=== PATIENT | male | born 1995 ===

== ENCOUNTER 2018-12-08 00:33 | Day surgery (SDC) | payer BC ==
[~2018-12-08] VITALS: Ht 188 cm; Wt 104.3 kg
[2018-12-08] MEDS ORDERED: NORMOSOL R SOLN(*) 1000 ML BAG 1,000 ML IV PRN (12:35)
[2018-12-08] MEDS ORDERED: ceFAZolin(*) 2GM/D5W 50ML 50 ML IVPB ONE (12:35)
[2018-12-08] MEDS ORDERED: MIDAZOLAM 2 MG/2 ML VIAL IVP PRN (12:35)
[2018-12-08] MEDS ORDERED: FAMOTIDINE 20 MG TAB PO ONE (12:35)
[2018-12-08] MEDS ORDERED: LIDOCAINE/SOD BICARB 8.4% SYR ID ONE (12:35)
[2018-12-08 14:32] VITALS: BP 123/71
[2018-12-08] MEDS ORDERED: DEXAMETHASONE SOD PHOS 10MG/ML ONE (16:31)
[2018-12-08] MEDS ORDERED: ONDANSETRON 4 MG/2 ML VIAL ONE (16:31)
[2018-12-08] MEDS ORDERED: PROPOFOL EMUL(*) 10MG/ML 20 ML 40 ML ONE (16:31)
[2018-12-08] MEDS ORDERED: fentaNYL CITR 100 MCG/2 ML AMP ONE (16:32)
[2018-12-08] MEDS ORDERED: ROPIVACAINE 0.5% 20 ML VIAL ONE (16:49)
[2018-12-08] MEDS ORDERED: BACITRACIN OINT 0.9 GM PKT TP ONE (17:18)
[2018-12-08] MEDS ORDERED: OXYC-373 PO (17:34)
[2018-12-08] MEDS ORDERED: DOCU-416 PO (17:35)
--- NOTE | 2018-12-08 17:38 | Short(Outpt) Discharge Summary ---
Discharge Summary Reason for Hosp/Final Diag: (1) Umbilical hernia Status: Chronic Hospital Course & Plan: UHR without mesh completed without problems. Departure Discharge to: Home, Self Care Discharge Instructions Home Meds Active Scripts Docusate Sodium (COLACE) 100 Mg Capsule, 1 CAP PO BID, #30 CAP 0 Refills TAKE WITH A FULL GLASS OF WATER Prov:DIMITRIS VILA MD 12/08/18 Oxycodone Hcl/Acetaminophen (OXYCODONE-ACETAMINOPHEN 5-325) 1 Each Tablet, 1 TAB PO Q4H PRN for PAIN, #20 TAB 0 Refills Prov:DIMITRIS VILA MD 12/08/18 Follow up Referrals: General Surgery - 12/23/18 @ Surgery, General with DIMITRIS VILA MD You have a follow up appointment scheduled with Dr. Vila on 12/23/18, at 9:45am. Diet: Regular Activity: No Heavy Lifting Special Instructions: You may remove the white surgical dressing and gauze from your belly button on 12/10/18, then you can shower after the dressing is removed. After showering, leave the incision open to air but leave the steristrips in place until they fall off on their own. Do not immerse the incision or your belly button for 2 weeks. Avoid any activity that involves straining or lifting more than 10 pounds for 4 weeks after surgery. Problem Qualifiers (1) Umbilical hernia: Obstruction and gangrene presence: without obstruction or gangrene Qualified Codes: K42.9 - Umbilical hernia without obstruction or gangrene DIMITRIS VILA MD Dec 08, 2018 17:38
--- NOTE | 2018-12-08 17:44 | Post Operative Progress Note ---
Post Operative Progress Note Date: Dec 08, 2018 Time: 17:39 Surgeon: Norma Dictation number: [id number] Anesthesia: LMA by Dr. Murphy Pre-Op Diagnosis: [facility] Post-Op Diagnosis: ALYSSA Findings: 8mm fascial defect Procedure(s): UHR without mesh Specimen Removed:(May be N/A): None Complications: None Fluids: See anesthesia record Estimated Blood Loss: Minimal Date OP Note Dictated: Dec 08, 2018 Time OP Note Dictated: 17:41 DIMITRIS VILA MD Dec 08, 2018 17:44
[2018-12-08 18:00] VITALS: BP 113/72
[2018-12-08 18:30] VITALS: BP 107/71
[2018-12-08 18:48] VITALS: BP 110/68
--- NOTE | 2018-12-08 19:31 | NUR ---
1800- PT. TRANSITIONED TO PHASE 2 AND KEPT IN THE PACU UNDER MY CARE. SEE ADMISSION ASSESSMENT. 1805- PT. GIVEN DIVYA CRACKERS AND CHEESE. 182- PT. GIVEN PERCOCET FOR PAIN AT 11/06. 183- DISCHARGE INSTRUCTIONS GONE OVER WITH PT. 1840- PT. GIVEN CHOCOLATE PUDDING. 1848- PT. STATES THAT HE IS READY TO GO HOME SO ORTHOSTATICS PREFORMED. 185- PT. GETTING DRESSED. 1901- IV TAKEN OUT AND PRESSURE DRESSING APPLIED. 1906- PT. ACCOMPANIED OUT TO VEHICLE BY ODELL LEIVA AND GIRLFRIEND.
--- NOTE | 2018-12-08 20:28 | OPERATIVE REPORT 1 ---
EVENT DATE: December 08, 2018 SURGEON: Boni Green MD ANESTHESIOLOGIST: Gigi Murphy MD ANESTHESIA: LMA. PREOPERATIVE DIAGNOSIS Umbilical hernia. POSTOPERATIVE DIAGNOSIS Umbilical hernia. PROCEDURE PERFORMED Umbilical hernia repair without mesh. COMPLICATIONS None. CONDITION Stable. BLOOD LOSS Minimal. FINDINGS This patient had an 8 mm fascial defect. No other abnormalities were found. The hernia contained only fat. INDICATIONS This is a 22-year-old gentleman who presented to my office with a bulge at his umbilicus, and his exam is consistent with an umbilical hernia. I presented his options, and he was electing to have the hernia repaired. DESCRIPTION OF PROCEDURE The patient was brought to the operating room, placed supine on the operating table. LMA anesthesia was administered, and his abdomen was prepped and draped in a sterile fashion. Timeout was completed, and I injected the supraumbilical skin with 0.5% ropivacaine plain. I made a curvilinear frowning face abdominal incision in the superior umbilical rim and dissected through the dermis and subcutaneous fat. The hernia was immediately evident just under the skin, and so I dissected mostly bluntly, but also using electrocautery completely around the hernia. I raised the umbilicus up off of the hernia as well as the underlying fascia. I did make a buttonhole in the umbilicus in this process. I then cleaned off the hernia sac circumferentially, amputated it at its neck, and there was nothing in it at the time of surgery but a little bit of fat. Once the sac was removed, I cleaned off the fascia on the superficial and deep sides and then closed the fascia in a transverse fashion with interrupted 0 Ethibond suture. I irrigated and dried the wound and then closed the buttonhole at the base of the umbilicus with a running 3-0 Vicryl suture without going through the skin, and then I tacked the umbilicus down to the fascia with a single 3-0 Vicryl suture. I then closed the skin with 4-0 Monocryl running subcuticular suture. Skin was cleaned and dried, and Steri-Strips were applied. Then, I packed the umbilicus with Bacitracin-laden 2 x 2 gauze and then covered the umbilicus and the incision with a sterile surgical dressing. The patient was then awakened and the LMA removed. He was transported to the recovery room in stable condition having tolerated the procedure without any apparent problems. MTDD
== END 2018-12-08 18:00 | disposition home or self-care (01) ==
LOC: OR 00:33
PROVIDERS: ATTEND Surgery
DX: K42.9 Umbilical hernia without obstruction or gangrene (principal)
CPT/HCPCS: 49585; C9399; J1100; J2250; J2405; J2704; J2795; J3010; J0690